=== PATIENT | male | born 1940 | race Caucasian/White ===

== ENCOUNTER 2020-09-05 00:27 | Inpatient (IN) | payer OTHER ==
[2020-09-05 00:46] VITALS: BMI 29.7
[2020-09-05] MEDS ORDERED: AZITHROMYCIN IVPB 500 MG in DEXTROSE 5%-WATER - 250 ML IVPB ONE (01:03)
[2020-09-05] MEDS ORDERED: CEFTRIAXONE 1 GM in DEXTROSE 5%-WATER - 100 ML IVPB ONE (01:03)
[2020-09-05] MEDS ORDERED: DEXAMETHASONE SOD PHOSPHATE 4 MG/1 ML VIAL IVPUSH ONE (01:04)
[2020-09-05] MEDS ORDERED: CEFTRIAXONE 1 GM/50 ML BAG ONE (02:26)
[2020-09-05] MEDS ORDERED: AZITHROMYCIN IVPB 500 MG/250 ML BAG IVPB ONE (02:26)
[2020-09-05] MEDS ORDERED: DEXAMETHASONE SOD PHOSPHATE 10 MG/1 ML VIAL ONE (02:26)
[2020-09-05 02:47] LABS: BASO % 0.1 % (0-2.0); HEMATOCRIT 40.4 % (35.4-49); HEMOGLOBIN 13.6 GM/dL (11.7-16.9); LYMPH % 7.4 % (8-40); MCH 28.3 pg (25.7-33.7); MCHC 33.6 g/dl (32.0-35.9); MEAN CELL VOLUME 84.3 fl (80-96); MEAN PLT VOLUME 9.2 fl (7.5-11.1); MONO % 4.6 % (3.8-10.2); NEUT % 87.9 % (42.8-82.8); PLATELET COUNT 176 K/MM3 (134-434); RBC 4.79 M/mm3 (4.00-5.60); RDW 14.6 % (11.9-15.9); WHITE BLOOD COUNT 7.3 K/mm3 (4.0-10.0)
[2020-09-05 03:00] LABS: INR 1.16 (0.83-1.09); PROTHROMBIN TIME (PATIENT) 14.2 SEC (9.7-13.0)
[2020-09-05 03:03] LABS: ACTIVATED PTT 28.9 SECONDS (25.2-36.5)
[2020-09-05 03:04] LABS: POTASSIUM 4.4 mmol/L (3.5-5.1)
[2020-09-05 03:06] LABS: CALCIUM 8.5 mg/dL (8.5-10.1); CO2 27 mmol/L (21-32); GLUCOSE,RANDOM 109 mg/dL (74-106)
[2020-09-05 03:07] LABS: ALBUMIN 3.3 g/dl (3.4-5.0); BLOOD UREA NITROGEN 55.7 mg/dL (7-18)
[2020-09-05 03:09] LABS: CREATININE 2.7 mg/dL (0.55-1.3)
[2020-09-05 03:10] LABS: SGOT/AST 504 U/L (15-37); SGPT/ALT 110 U/L (13-61)
[2020-09-05 03:11] LABS: BILIRUBIN,TOTAL 0.6 mg/dL (0.2-1)
[2020-09-05 03:12] LABS: ALK PHOS 41 U/L (45-117)
[2020-09-05 03:45] LABS: ARTERIAL BLD GAS O2 SATURATION 95.4 mmHg (95-98); ARTERIAL BLOOD GAS BASE EXCESS -0.2 mmol/L (-2-2); ARTERIAL BLOOD GAS PO2 71.6 mmHg (80-100); ARTERIAL BLOOD GAS pH 7.467 (7.350-7.450)
[2020-09-05] MEDS ORDERED: HEPARIN INFUSION - 25,000 UNITS/500 ML INFUS.BAG IVPB SCH (03:45)
[2020-09-05 03:48] LABS: ALLENS TEST POSITIVE
[2020-09-05 03:50] LABS: VENT MODE BP
[2020-09-05 04:04] LABS: CHLORIDE 102 mmol/L (98-107); SODIUM 135 mmol/L (136-145)
[2020-09-05] MEDS ORDERED: HEPARIN INFUSION - 25,000 UNITS/500 ML INFUS.BAG IVPB ONE (05:00)
[2020-09-05] MEDS: HEPARIN INFUSION - 25,000 UNITS/500 ML INFUS.BAG IVPB SCH (05:05)
[2020-09-05 05:34] LABS: LDH 939 U/L (87-246)
[2020-09-05 05:37] LABS: N-TERMINAL BNP 277.9 pg/ml (5-450)
[2020-09-05 07:00] LABS: ANION GAP 7 MMOL/L (8-16)
[2020-09-05 16:45] LABS: EPI CELLS 8 /uL (0-25.1); HYALINE CASTS 6 /uL (0-3.1); URINE APPEARANCE CLOUDY; URINE BACTERIA 36 /uL (0-1359); URINE BILIRUBIN NEGATIVE (NEGATIVE); URINE COLOR YELLOW; URINE GLUCOSE (UA) NEGATIVE (NEGATIVE); URINE KETONE NEGATIVE (NEGATIVE); URINE LEUK ESTERASE NEGATIVE (NEGATIVE); URINE NITRITE NEGATIVE (NEGATIVE); URINE PROTEIN 2+ (NEGATIVE); URINE RBC 137 /uL (0-23.9); URINE UROBILINOGEN 0.2 mg/dL (0.2-1.0); URINE WBC 11 /uL (0-25.8)
[2020-09-06] MEDS ORDERED: HEPARIN INFUSION - 25,000 UNITS/500 ML INFUS.BAG IVPB ONE (07:58)
[2020-09-06 08:31] LABS: BASO % 0.1 % (0-2.0); HEMATOCRIT 38.2 % (35.4-49); HEMOGLOBIN 12.5 GM/dL (11.7-16.9); LYMPH % 6.5 % (8-40); MCH 27.9 pg (25.7-33.7); MCHC 32.8 g/dl (32.0-35.9); MEAN PLT VOLUME 9.2 fl (7.5-11.1); MONO % 3.2 % (3.8-10.2); NEUT % 90.2 % (42.8-82.8); PLATELET COUNT 211 K/MM3 (134-434); RBC 4.49 M/mm3 (4.00-5.60); RDW 14.6 % (11.9-15.9); WHITE BLOOD COUNT 11.2 K/mm3 (4.0-10.0)
[2020-09-06 08:47] LABS: INR 1.18 (0.83-1.09); PROTHROMBIN TIME (PATIENT) 14.5 SEC (9.7-13.0)
[2020-09-06 08:49] LABS: ACTIVATED PTT 63.6 SECONDS (25.2-36.5)
[2020-09-06 08:58] LABS: POTASSIUM 4.6 mmol/L (3.5-5.1)
[2020-09-06 09:00] LABS: ALBUMIN 2.8 g/dl (3.4-5.0); CALCIUM 8.1 mg/dL (8.5-10.1)
[2020-09-06 09:01] LABS: BLOOD UREA NITROGEN 68.5 mg/dL (7-18)
[2020-09-06 09:04] LABS: CREATININE 2.3 mg/dL (0.55-1.3)
[2020-09-06 09:05] LABS: BILIRUBIN,TOTAL 0.7 mg/dL (0.2-1); TOT PROT 6.4 g/dl (6.4-8.2)
[2020-09-06] MEDS: HEPARIN INFUSION - 25,000 UNITS/500 ML INFUS.BAG IVPB SCH (09:06)
[2020-09-06 10:03] LABS: ANISOCYTOSIS 0; MACROCYTOSIS 0
[2020-09-06] MEDS: SODIUM CHLORIDE 1,000 ML IV SCH (14:15)
[2020-09-07] MEDS: SODIUM CHLORIDE 1,000 ML IV SCH (07:18)
[2020-09-07] MEDS: HEPARIN INFUSION - 25,000 UNITS/500 ML INFUS.BAG IVPB SCH (07:18)
[2020-09-07 08:37] LABS: BASO % 0.1 % (0-2.0); HEMATOCRIT 37.4 % (35.4-49); HEMOGLOBIN 12.2 GM/dL (11.7-16.9); LYMPH % 4.9 % (8-40); MCH 27.8 pg (25.7-33.7); MCHC 32.6 g/dl (32.0-35.9); MEAN CELL VOLUME 85.2 fl (80-96); MEAN PLT VOLUME 8.8 fl (7.5-11.1); MONO % 2.5 % (3.8-10.2); NEUT % 92.5 % (42.8-82.8); PLATELET COUNT 213 K/MM3 (134-434); RBC 4.39 M/mm3 (4.00-5.60); RDW 14.7 % (11.9-15.9); WHITE BLOOD COUNT 8.6 K/mm3 (4.0-10.0)
[2020-09-07 08:57] LABS: POTASSIUM 4.2 mmol/L (3.5-5.1)
[2020-09-07 09:12] LABS: ALBUMIN 2.6 g/dl (3.4-5.0); BLOOD UREA NITROGEN 45.6 mg/dL (7-18); CALCIUM 7.6 mg/dL (8.5-10.1); MAGNESIUM 2.7 mg/dL (1.8-2.4)
[2020-09-07 09:15] LABS: CREATININE 1.6 mg/dL (0.55-1.3)
[2020-09-07 09:16] LABS: PHOSPHOROUS 2.1 mg/dL (2.5-4.9)
[2020-09-07 09:17] LABS: BILIRUBIN,TOTAL 0.7 mg/dL (0.2-1)
[2020-09-07 10:05] LABS: ANISOCYTOSIS 0; MACROCYTOSIS 0; PLATELET ESTIMATE NORMAL
[2020-09-07] MEDS ORDERED: HEPARIN NA (PORCINE) 5,000 UNITS/ML 1ML VIAL IVPUSH ONE (11:30)
[2020-09-07] MEDS ORDERED: HEPARIN NA (PORCINE) 5,000 UNITS/ML 1ML VIAL IVPUSH PRN ×2 (11:30)
[2020-09-07] MEDS: POTASSIUM CHLORIDE 10 MEQ in SODIUM CHLORIDE 0.45% 1,000 ML IVPB SCH (11:31)
[2020-09-08] MEDS: HEPARIN INFUSION - 25,000 UNITS/500 ML INFUS.BAG IVPB SCH (09:58)
[2020-09-08] MEDS ORDERED: PT OWN MED DRAWER 7, Y5N ONE (10:09)
[2020-09-08] MEDS: POTASSIUM CHLORIDE 10 MEQ in SODIUM CHLORIDE 0.45% 1,000 ML IVPB SCH (10:18)
[2020-09-08] MEDS: AZITHROMYCIN IVPB 500 MG/250 ML BAG IVPB SCH (10:19)
[2020-09-08] MEDS ORDERED: REMDESIVIR 200 MG in SODIUM CHLORIDE 210 ML IVPB ONE (13:15)
[2020-09-08] MEDS: DEXAMETHASONE 4 MG TABLET (FP) PO SCH (13:20)
[2020-09-08 16:05] LABS: BASO % 0.4 % (0-2.0); EOS % 0.2 % (0-4.5); HEMATOCRIT 33.7 % (35.4-49); LYMPH % 7.1 % (8-40); MCH 27.9 pg (25.7-33.7); MCHC 32.6 g/dl (32.0-35.9); MEAN CELL VOLUME 85.6 fl (80-96); MEAN PLT VOLUME 9.1 fl (7.5-11.1); NEUT % 89.3 % (42.8-82.8); PLATELET COUNT 216 K/MM3 (134-434); RBC 3.94 M/mm3 (4.00-5.60); RDW 14.7 % (11.9-15.9); WHITE BLOOD COUNT 8.4 K/mm3 (4.0-10.0)
[2020-09-08 16:30] LABS: POTASSIUM 4.2 mmol/L (3.5-5.1)
[2020-09-08 16:32] LABS: ALBUMIN 2.2 g/dl (3.4-5.0); CALCIUM 7.3 mg/dL (8.5-10.1)
[2020-09-08 16:33] LABS: BLOOD UREA NITROGEN 35.9 mg/dL (7-18)
[2020-09-08 16:36] LABS: CREATININE 1.5 mg/dL (0.55-1.3)
[2020-09-08 16:37] LABS: BILIRUBIN,TOTAL 0.4 mg/dL (0.2-1); TOT PROT 5.3 g/dl (6.4-8.2)
[2020-09-08 17:05] LABS: ANISOCYTOSIS 1+; MACROCYTOSIS 0; OVALOCYTE 1+; PLATELET ESTIMATE NORMAL
[2020-09-09] MEDS: HEPARIN INFUSION - 25,000 UNITS/500 ML INFUS.BAG IVPB SCH ×2 (04:09→10:07)
[2020-09-09 08:47] LABS: BASO % 0.2 % (0-2.0); HEMATOCRIT 33.2 % (35.4-49); HEMOGLOBIN 11.1 GM/dL (11.7-16.9); LYMPH % 6.8 % (8-40); MCH 28.5 pg (25.7-33.7); MCHC 33.4 g/dl (32.0-35.9); MEAN CELL VOLUME 85.2 fl (80-96); MEAN PLT VOLUME 9.5 fl (7.5-11.1); MONO % 4.2 % (3.8-10.2); NEUT % 88.8 % (42.8-82.8); PLATELET COUNT 215 K/MM3 (134-434); RDW 14.4 % (11.9-15.9); WHITE BLOOD COUNT 7.4 K/mm3 (4.0-10.0)
[2020-09-09] MEDS ORDERED: PT OWN MED DRAWER 7, Y5N ONE (08:58)
[2020-09-09] MEDS: DEXAMETHASONE 4 MG TABLET (FP) PO SCH (10:08)
[2020-09-09] MEDS: POTASSIUM CHLORIDE 10 MEQ in SODIUM CHLORIDE 0.45% 1,000 ML IVPB SCH (10:08)
[2020-09-09] MEDS: AZITHROMYCIN IVPB 500 MG/250 ML BAG IVPB SCH (10:09)
[2020-09-09 11:13] LABS: ALBUMIN 2.2 g/dl (3.4-5.0); BILIRUBIN,TOTAL 0.5 mg/dL (0.2-1); CALCIUM 7.6 mg/dL (8.5-10.1); CREATININE 1.2 mg/dL (0.55-1.3); MAGNESIUM 2.4 mg/dL (1.8-2.4); POTASSIUM 4.5 mmol/L (3.5-5.1); TOT PROT 5.4 g/dl (6.4-8.2)
[2020-09-09 11:25] LABS: ANISOCYTOSIS 1+; MACROCYTOSIS 1+; PLATELET ESTIMATE NORMAL
[2020-09-09] MEDS: REMDESIVIR 100 MG in SODIUM CHLORIDE 230 ML IVPB SCH (12:23)
[2020-09-09] MEDS: ENOXAPARIN NA (PORCINE) 100 MG/1 ML DISP.SYRIN SQ SCH ×2 (15:38→22:29)
[2020-09-10 09:10] LABS: BASO % 0.1 % (0-2.0); HEMATOCRIT 32.8 % (35.4-49); HEMOGLOBIN 11.1 GM/dL (11.7-16.9); LYMPH % 3.6 % (8-40); MCH 28.6 pg (25.7-33.7); MCHC 33.9 g/dl (32.0-35.9); MEAN CELL VOLUME 84.4 fl (80-96); MEAN PLT VOLUME 9.3 fl (7.5-11.1); MONO % 4.9 % (3.8-10.2); NEUT % 91.4 % (42.8-82.8); PLATELET COUNT 251 K/MM3 (134-434); RBC 3.88 M/mm3 (4.00-5.60); RDW 14.5 % (11.9-15.9); WHITE BLOOD COUNT 9.9 K/mm3 (4.0-10.0)
[2020-09-10 09:28] LABS: POTASSIUM 4.3 mmol/L (3.5-5.1)
[2020-09-10 09:35] LABS: CALCIUM 7.5 mg/dL (8.5-10.1)
[2020-09-10 09:36] LABS: ALBUMIN 2.2 g/dl (3.4-5.0); BLOOD UREA NITROGEN 26.7 mg/dL (7-18); MAGNESIUM 2.1 mg/dL (1.8-2.4)
[2020-09-10 09:37] LABS: BILIRUBIN,TOTAL 0.5 mg/dL (0.2-1); TOT PROT 5.3 g/dl (6.4-8.2)
[2020-09-10] MEDS: DEXAMETHASONE 4 MG TABLET (FP) PO SCH (09:38)
[2020-09-10] MEDS: ENOXAPARIN NA (PORCINE) 100 MG/1 ML DISP.SYRIN SQ SCH ×2 (09:38→21:59)
[2020-09-10 10:03] LABS: ANISOCYTOSIS 0; MACROCYTOSIS 0; PLATELET ESTIMATE NORMAL
[2020-09-10] MEDS: POTASSIUM CHLORIDE 10 MEQ in SODIUM CHLORIDE 0.45% 1,000 ML IVPB SCH (12:31)
[2020-09-10] MEDS: REMDESIVIR 100 MG in SODIUM CHLORIDE 230 ML IVPB SCH (14:27)
[2020-09-11] MEDS: DEXAMETHASONE 4 MG TABLET (FP) PO SCH (10:37)
[2020-09-11] MEDS: amLODIPine BESYLATE 5 MG TABLET (FP) PO SCH (10:37)
[2020-09-11] MEDS: ENOXAPARIN NA (PORCINE) 100 MG/1 ML DISP.SYRIN SQ SCH ×2 (10:38→22:03)
[2020-09-11] MEDS: POTASSIUM CHLORIDE 10 MEQ in SODIUM CHLORIDE 0.45% 1,000 ML IVPB SCH (13:35)
[2020-09-11] MEDS: PANTOPRAZOLE SODIUM 40 MG VIAL IVPUSH SCH (13:36)
[2020-09-11] MEDS: REMDESIVIR 100 MG in SODIUM CHLORIDE 230 ML IVPB SCH (14:24)
[2020-09-12] MEDS: ENOXAPARIN NA (PORCINE) 100 MG/1 ML DISP.SYRIN SQ SCH ×2 (10:36→22:24)
[2020-09-12] MEDS: amLODIPine BESYLATE 5 MG TABLET (FP) PO SCH (10:36)
[2020-09-12] MEDS: DEXAMETHASONE 4 MG TABLET (FP) PO SCH (10:36)
[2020-09-12] MEDS: PANTOPRAZOLE SODIUM 40 MG VIAL IVPUSH SCH (10:37)
[2020-09-12] MEDS: POTASSIUM CHLORIDE 10 MEQ in SODIUM CHLORIDE 0.45% 1,000 ML IVPB SCH (12:31)
[2020-09-12] MEDS ORDERED: PROMETHAZINE HCL ORAL SYRUP 6.25 MG/5 ML (BULK BOTTLE) PO PRN (13:59)
[2020-09-12] MEDS: REMDESIVIR 100 MG in SODIUM CHLORIDE 230 ML IVPB SCH (14:47)
[2020-09-12] MEDS: PROMETHAZINE HCL ORAL SYRUP 6.25 MG/5 ML (BULK BOTTLE) PO PRN (17:01)
[2020-09-13] MEDS: PANTOPRAZOLE SODIUM 40 MG VIAL IVPUSH SCH (11:18)
[2020-09-13] MEDS: ENOXAPARIN NA (PORCINE) 100 MG/1 ML DISP.SYRIN SQ SCH ×2 (11:19→21:29)
[2020-09-13] MEDS: MULTIVITAMINS THER W-MINERALS COMBO TABLET (FP) PO SCH (11:20)
[2020-09-13] MEDS: amLODIPine BESYLATE 5 MG TABLET (FP) PO SCH (11:20)
[2020-09-13] MEDS ORDERED: PT OWN MED DRAWER 7, Y5N ONE (11:34)
[2020-09-13] MEDS: PROMETHAZINE HCL ORAL SYRUP 6.25 MG/5 ML (BULK BOTTLE) PO PRN (11:36)
[2020-09-13] MEDS: DEXAMETHASONE 4 MG TABLET (FP) PO SCH (13:03)
[2020-09-13] MEDS: POTASSIUM CHLORIDE 10 MEQ in SODIUM CHLORIDE 0.45% 1,000 ML IVPB SCH (15:12)
[2020-09-14] MEDS: amLODIPine BESYLATE 5 MG TABLET (FP) PO SCH (10:16)
[2020-09-14] MEDS: ENOXAPARIN NA (PORCINE) 100 MG/1 ML DISP.SYRIN SQ SCH ×2 (10:16→22:44)
[2020-09-14] MEDS: MULTIVITAMINS THER W-MINERALS COMBO TABLET (FP) PO SCH (10:16)
[2020-09-14] MEDS: PANTOPRAZOLE SODIUM 40 MG VIAL IVPUSH SCH (10:16)
[2020-09-14] MEDS: POTASSIUM CHLORIDE 10 MEQ in SODIUM CHLORIDE 0.45% 1,000 ML IVPB SCH (10:16)
[2020-09-14] MEDS: DEXAMETHASONE 4 MG TABLET (FP) PO SCH (10:16)
[2020-09-14] MEDS: PROMETHAZINE HCL ORAL SYRUP 6.25 MG/5 ML (BULK BOTTLE) PO PRN (10:17)
[2020-09-14] MEDS ORDERED: PT OWN MED DRAWER 7, Y5N ONE (20:05)
[2020-09-15 09:08] LABS: BASO % 0.3 % (0-2.0); EOS % 0.3 % (0-4.5); HEMATOCRIT 34.1 % (35.4-49); HEMOGLOBIN 10.8 GM/dL (11.7-16.9); LYMPH % 5.4 % (8-40); MCH 26.8 pg (25.7-33.7); MCHC 31.7 g/dl (32.0-35.9); MEAN CELL VOLUME 84.5 fl (80-96); MEAN PLT VOLUME 8.9 fl (7.5-11.1); MONO % 5.9 % (3.8-10.2); NEUT % 88.1 % (42.8-82.8); PLATELET COUNT 278 K/MM3 (134-434); RBC 4.04 M/mm3 (4.00-5.60); RDW 14.8 % (11.9-15.9); WHITE BLOOD COUNT 11.9 K/mm3 (4.0-10.0)
[2020-09-15] MEDS: PROMETHAZINE HCL ORAL SYRUP 6.25 MG/5 ML (BULK BOTTLE) PO PRN (09:33)
[2020-09-15] MEDS: MULTIVITAMINS THER W-MINERALS COMBO TABLET (FP) PO SCH (09:33)
[2020-09-15] MEDS: PANTOPRAZOLE SODIUM 40 MG VIAL IVPUSH SCH (09:33)
[2020-09-15] MEDS: ENOXAPARIN NA (PORCINE) 100 MG/1 ML DISP.SYRIN SQ SCH ×2 (09:33→22:37)
[2020-09-15] MEDS: DEXAMETHASONE 4 MG TABLET (FP) PO SCH (09:33)
[2020-09-15] MEDS: amLODIPine BESYLATE 5 MG TABLET (FP) PO SCH (09:33)
[2020-09-15 09:42] LABS: ALBUMIN 2.2 g/dl (3.4-5.0); BILIRUBIN,TOTAL 0.4 mg/dL (0.2-1); CALCIUM 7.8 mg/dL (8.5-10.1); CREATININE 1.3 mg/dL (0.55-1.3); POTASSIUM 4.4 mmol/L (3.5-5.1)
[2020-09-15 12:59] LABS: ANISOCYTOSIS 0; MACROCYTOSIS 0; PLATELET ESTIMATE NORMAL
[2020-09-16] MEDS: ASCORBIC ACID 500 MG TABLET (FP) PO SCH (10:41)
[2020-09-16] MEDS: ZINC SULFATE 220 MG CAPSULE (FP) PO SCH (10:41)
[2020-09-16] MEDS: DEXAMETHASONE 4 MG TABLET (FP) PO SCH (10:41)
[2020-09-16] MEDS: MULTIVITAMINS THER W-MINERALS COMBO TABLET (FP) PO SCH (10:41)
[2020-09-16] MEDS: CHOLECALCIFEROL (VIT D3) 1,000 UNIT (25 MCG) TABLET PO SCH (10:41)
[2020-09-16] MEDS: ENOXAPARIN NA (PORCINE) 100 MG/1 ML DISP.SYRIN SQ SCH ×2 (10:41→22:07)
[2020-09-16] MEDS: PANTOPRAZOLE SODIUM 40 MG VIAL IVPUSH SCH (10:41)
[2020-09-16] MEDS: amLODIPine BESYLATE 5 MG TABLET (FP) PO SCH (10:41)
[2020-09-16] MEDS: PROMETHAZINE HCL ORAL SYRUP 6.25 MG/5 ML (BULK BOTTLE) PO PRN (10:48)
[2020-09-16 12:35] LABS: BASO % 0.4 % (0-2.0); EOS % 0.1 % (0-4.5); HEMATOCRIT 33.5 % (35.4-49); HEMOGLOBIN 10.6 GM/dL (11.7-16.9); LYMPH % 4.7 % (8-40); MCH 27.2 pg (25.7-33.7); MCHC 31.7 g/dl (32.0-35.9); MEAN PLT VOLUME 9.6 fl (7.5-11.1); MONO % 5.1 % (3.8-10.2); NEUT % 89.7 % (42.8-82.8); PLATELET COUNT 276 K/MM3 (134-434); RDW 14.7 % (11.9-15.9); WHITE BLOOD COUNT 13.8 K/mm3 (4.0-10.0)
[2020-09-16 12:52] LABS: POTASSIUM 4.7 mmol/L (3.5-5.1)
[2020-09-16 12:54] LABS: BLOOD UREA NITROGEN 33.9 mg/dL (7-18); CALCIUM 7.9 mg/dL (8.5-10.1)
[2020-09-16 12:58] LABS: CREATININE 1.2 mg/dL (0.55-1.3)
[2020-09-16 13:39] LABS: ANISOCYTOSIS 0; MACROCYTOSIS 0; OVALOCYTE 1+; PLATELET ESTIMATE NORMAL
[2020-09-17] MEDS: ACETAMINOPHEN 325 MG TABLET (FP) PO PRN ×2 (05:28→15:01)
[2020-09-17] MEDS: amLODIPine BESYLATE 5 MG TABLET (FP) PO SCH (10:27)
[2020-09-17] MEDS: CHOLECALCIFEROL (VIT D3) 1,000 UNIT (25 MCG) TABLET PO SCH (10:27)
[2020-09-17] MEDS: ASCORBIC ACID 500 MG TABLET (FP) PO SCH (10:27)
[2020-09-17] MEDS: ZINC SULFATE 220 MG CAPSULE (FP) PO SCH (10:27)
[2020-09-17] MEDS: MULTIVITAMINS THER W-MINERALS COMBO TABLET (FP) PO SCH (10:27)
[2020-09-17] MEDS: PANTOPRAZOLE SODIUM 40 MG VIAL IVPUSH SCH (10:28)
[2020-09-17] MEDS: ENOXAPARIN NA (PORCINE) 100 MG/1 ML DISP.SYRIN SQ SCH ×2 (10:28→22:42)
[2020-09-17] MEDS ORDERED: PT OWN MED DRAWER 7, Y5N ONE (12:13)
[2020-09-17] MEDS: DEXAMETHASONE 4 MG TABLET (FP) PO SCH (15:01)
[2020-09-17] MEDS ORDERED: SODIUM CHLORIDE 500 ML IV ONE (23:45)
[2020-09-18] MEDS ORDERED: SODIUM CHLORIDE 500 ML IV ONE (03:15)
[2020-09-18] MEDS ORDERED: DEXTROSE 5%-0.45% SALINE 1,000 ML IV SCH (03:15)
[2020-09-18] MEDS ORDERED: SODIUM CHLORIDE 1,000 ML IV STA ×2 (05:34→06:56)
[2020-09-18 06:17] LABS: BASO % 0.1 % (0-2.0); LYMPH % 8.6 % (8-40); MCHC 30.7 g/dl (32.0-35.9); MEAN CELL VOLUME 91.3 fl (80-96); MEAN PLT VOLUME 9.1 fl (7.5-11.1); MONO % 5.4 % (3.8-10.2); NEUT % 85.9 % (42.8-82.8); PLATELET COUNT 168 K/MM3 (134-434); RBC 1.42 M/mm3 (4.00-5.60); RDW 15.9 % (11.9-15.9); WHITE BLOOD COUNT 18.4 K/mm3 (4.0-10.0)
[2020-09-18] MEDS ORDERED: PROTAMINE SULFATE 50 MG/5 ML VIAL IVPUSH ONE ×2 (06:24→06:30)
[2020-09-18 06:34] LABS: INR 1.53 (0.83-1.09); PROTHROMBIN TIME (PATIENT) 18.3 SEC (9.7-13.0)
[2020-09-18 06:37] LABS: ACTIVATED PTT 47.1 SECONDS (25.2-36.5)
[2020-09-18 06:50] LABS: POTASSIUM 4.8 mmol/L (3.5-5.1)
[2020-09-18 06:52] LABS: ALBUMIN 1.6 g/dl (3.4-5.0); BLOOD UREA NITROGEN 42.3 mg/dL (7-18)
[2020-09-18 06:56] LABS: CREATININE 2.8 mg/dL (0.55-1.3)
[2020-09-18 06:57] LABS: BILIRUBIN,TOTAL 0.4 mg/dL (0.2-1); TOT PROT 3.6 g/dl (6.4-8.2)
[2020-09-18] MEDS: VASOPRESSIN 40 UNITS in SODIUM CHLORIDE 98 ML IVPB SCH ×2 (07:00→14:30)
[2020-09-18 07:04] LABS: MAGNESIUM 1.8 mg/dL (1.8-2.4)
[2020-09-18 07:08] LABS: PHOSPHOROUS 6.8 mg/dL (2.5-4.9)
[2020-09-18 07:56] LABS: CALCIUM 6.1 mg/dL (8.5-10.1)
[2020-09-18] MEDS ORDERED: FAMOTIDINE 20 MG/50 ML IVPB 20 MG/50 ML MG IVPB SCH (10:00)
[2020-09-18] MEDS: ZINC SULFATE 220 MG CAPSULE (FP) PO SCH (11:11)
[2020-09-18] MEDS: DEXAMETHASONE 4 MG TABLET (FP) PO SCH (11:11)
[2020-09-18] MEDS: MULTIVITAMINS THER W-MINERALS COMBO TABLET (FP) PO SCH (11:12)
[2020-09-18] MEDS: CHOLECALCIFEROL (VIT D3) 1,000 UNIT (25 MCG) TABLET PO SCH (11:12)
[2020-09-18] MEDS: ASCORBIC ACID 500 MG TABLET (FP) PO SCH (11:12)
[2020-09-18 11:40] LABS: ANISOCYTOSIS 3+; MACROCYTOSIS 0; PLATELET ESTIMATE NORMAL
[2020-09-18] MEDS ORDERED: DEXAMETHASONE SOD PHOSPHATE 4 MG/1 ML VIAL IVPUSH ONE (13:05)
[2020-09-18 13:19] LABS: URINE APPEARANCE TURBID; URINE BILIRUBIN 1+ (NEGATIVE); URINE COLOR DK YELLOW; URINE GLUCOSE (UA) NEGATIVE (NEGATIVE); URINE KETONE 1+ (NEGATIVE)
[2020-09-18 13:20] LABS: EPI CELLS 100.1 /uL (0-25.1); URINE LEUK ESTERASE NEGATIVE (NEGATIVE); URINE NITRITE NEGATIVE (NEGATIVE); URINE PROTEIN TRACE (NEGATIVE); URINE RBC 25.6 /uL (0-23.9); URINE WBC 57.5 /uL (0-25.8)
[2020-09-18 13:21] LABS: HYALINE CASTS 71.93 /uL (0-3.1); URINE BACTERIA 9.9 /uL (0-1359)
[2020-09-18] MEDS ORDERED: SODIUM BICARBONATE 8.4% 50 MEQ/50 ML DISP.SYRIN IVPUSH ONE (13:50)
[2020-09-18] MEDS ORDERED: CALCIUM GLUCONATE 10% - 1,000 MG/10 ML VIAL IVPB ONE (14:00)
[2020-09-18] MEDS ORDERED: SODIUM BICARBONATE 8.4% - 50 MEQ in SODIUM CHLORIDE 0.45% 1,000 ML IV SCH (14:00)
[2020-09-18] MEDS ORDERED: VASOPRESSIN 20 UNITS/ML VIAL IV ONE (14:19)
[2020-09-18] MEDS ORDERED: SODIUM BICARBONATE 8.4% - 50 ML ONE (14:33)
[2020-09-18] MEDS ORDERED: DEXAMETHASONE SOD PHOSPHATE 10 MG/1 ML VIAL ONE (17:02)
[2020-09-18 18:42] LABS: HEMATOCRIT 29.9 % (35.4-49); HEMOGLOBIN 9.4 GM/dL (11.7-16.9); MCH 27.4 pg (25.7-33.7); MCHC 31.4 g/dl (32.0-35.9); MEAN CELL VOLUME 87.5 fl (80-96); MEAN PLT VOLUME 9.6 fl (7.5-11.1); PLATELET COUNT 225 K/MM3 (134-434); RBC 3.42 M/mm3 (4.00-5.60); RDW 15.2 % (11.9-15.9)
[2020-09-18 18:48] VITALS: PULSE 72
[2020-09-18 18:57] LABS: WHITE BLOOD COUNT 44.5 K/mm3 (4.0-10.0)
[2020-09-18 19:02] LABS: ALBUMIN 2.2 g/dl (3.4-5.0); BLOOD UREA NITROGEN 61.4 mg/dL (7-18)
[2020-09-18 19:05] LABS: CREATININE 3.7 mg/dL (0.55-1.3)
[2020-09-18 19:07] LABS: BILIRUBIN,TOTAL 0.8 mg/dL (0.2-1); TOT PROT 4.5 g/dl (6.4-8.2)
[2020-09-18 19:31] LABS: CALCIUM 6.8 mg/dL (8.5-10.1); POTASSIUM 6.6 mmol/L (3.5-5.1)
[2020-09-18 19:46] VITALS: BP 99/69; TEMP 96.9
[2020-09-18] MEDS ORDERED: SODIUM CHLORIDE 500 ML IV STA (21:44)
== END 2020-09-18 22:00 | disposition short-term general hospital (02) | DRG 177 ==
LOC: JER 00:27 → JERBED 04:55 → J5S 09-06 10:39 → JICU 09-18 06:56
PROVIDERS: ADMIT Internal Medicine; ATTEND Internal Medicine
PROC: 8E0ZXY6 Isolation (ICD-10-PCS; 2020-09-05)
PROC: XW13325 Transfusion of Convalescent Plasma (Nonautologous) into Peripheral Vein, Percutaneous Approach, New Technology Group 5 (ICD-10-PCS; principal; 2020-09-08)
PROC: XW033E5 Introduction of Remdesivir Anti-infective into Peripheral Vein, Percutaneous Approach, New Technology Group 5 (ICD-10-PCS; 2020-09-08)
PROC: 30233N1 Transfusion of Nonautologous Red Blood Cells into Peripheral Vein, Percutaneous Approach (ICD-10-PCS; 2020-09-18)
DX: U07.1 COVID-19 (principal); J96.01 Acute respiratory failure with hypoxia; J12.89 Other viral pneumonia; K66.1 Hemoperitoneum; N17.9 Acute kidney failure, unspecified; M62.82 Rhabdomyolysis; E87.2 Acidosis; I10 Essential (primary) hypertension; R77.8 Other specified abnormalities of plasma proteins; I95.9 Hypotension, unspecified; D64.9 Anemia, unspecified; R00.0 Tachycardia, unspecified
CPT/HCPCS: 36415; 36430; 36600; 70450-TC; 71045-TC-FY; 71250-TC; 71275-TC; 74176-TC; 80048; 80053; 81003; 82550; 82553; 82728; 82803; 83605; 83615; 83735; 83880; 84100; 84484; 85025; 85027; 85379; 85610; 85730; 86140; 86850; 86900; 86901; 86922; 87040; 87086; 87804; 93005; 93010; 94010; 97116-GP; 97162-GP; 99285-25; C9399; C9803; J1100; J1644; P9017; P9058; U0003